=== PATIENT | female | born 1945 | race African-American/Black ===

== ENCOUNTER 2016-11-18 12:24 | Emergency (ER) | payer BC ==
[2016-11-18 12:04] LABS: BASOPHILS 0.6 %; BASOPHILS ABSOLUTE 0.04 10/3/uL (0.0-0.16); EOSINOPHILS 0.7 %; EOSINOPHILS ABSOLUTE 0.05 10/3/uL (0.0-0.53); ER CBC TAT 0 Hrs 04 MinsNP; HEMATOCRIT 37.9 % (36.0-48.0); HEMOGLOBIN 12.9 g/dL (12.0-16.0); IMMATURE GRANULOCYTES 0.1 %; IMMATURE GRANULOCYTES ABSOLUTE 0.01 10/3/uL (0.0-0.11); LYMPHOCYTES 33.6 %; LYMPHOCYTES ABSOLUTE 2.42 10/3/uL (0.67-4.30); MANUAL DIFF NO %; MEAN CORPUSCULAR VOLUME 85.2 fL (80-100); MEAN PLATELET VOLUME 9.7 fL (9.2-13.0); MONOCYTES 6.2 %; MONOCYTES ABSOLUTE 0.45 10/3/uL (0.21-1.20); NEUTROPHILS 58.8 %; NEUTROPHILS ABSOLUTE 4.24 10/3/uL (2.02-8.40); PLATELET COUNT 258 10/3/uL (150-400); RBC DISTRIBUTION WIDTH 16.2 % (12.0-16.0); RED CELL COUNT 4.45 10/6/uL (4.0-5.6); WHITE BLOOD CELLS 7.2 10/3/uL (4.5-10.5)
[2016-11-18 12:13] LABS: INTERNATIONAL NORMAL RATI 1.1 UNITS (-); PARTIAL THROMBO TIME 30.7 SEC (22.5-37.2); PROTIME (NOT ORD) 14.2 SEC (12.0-14.5)
[2016-11-18 12:19] LABS: CHEST PAIN PROFILE TAT 0 Hrs 19 Mins; CHLORIDE, SERUM 103 MMOL/L (96-112); CO2 (CARBON DIOXIDE) 30 MMOL/L (24-34); CREATININE 0.79 MG/DL (0.55-1.02); GFR AFRICAN AMERICAN 87 ML/MIN (>=60); GFR NON AFRICAN AMERICAN 75 ML/MIN (>=60); GLUCOSE, SERUM 80 MG/DL (60-99); SODIUM, SERUM 139 MMOL/L (135-148); TROPONIN I <0.02 NG/ML (<0.05)
[2016-11-18 12:20] LABS: BUN (BLOOD UREA NITROGEN) 12 MG/DL (6-23)
[~2016-11-18 12:24] MED LIST: ADVIL PO; ALLEGRA 180 MG180 MG PO; ALLEGRA180 PO; AMOXIL500 MG PO; ASA5GR PO; ASABAYER PO; BENICAR HCT1 TAB PO; BENICAR20 PO; BENICAR40 PO; BIOTIN5 MG PO; BONIVA; BONIVA150 MG PO; BYSTOLIC10 MG PO; BYSTOLIC5 MG PO; CALTRA600D PO; CARTIA XT180 MG/24 PO; CAT1 PO; CEFT5 PO; CENTRUM PO; CENTRUM TAB1 TAB PO; CO Q-10100 MG PO; CO Q-10200 MG PO; CRESTOR10 PO; CRESTOR5 MG PO; EDARBI40 MG PO; FLONASE NAS; HALF81 PO; HARD NAILS PO; MULTIVITAMI1 PO; MULTIVITAMIN PO; NASONEX NAS; NORV25 PO; PREV30 PO; REFRES1 OPH; SINGULAIR1 PO; SPIRO25 PO; TAMBO50 PO; TAMBOCOR PO; TEKTUR150 PO; TOPXL50 PO; ULTRAM50 PO; VITAMIN B-2100 MG PO; VITAMIN D1000 UNI1 PO; VITAMIN D2000 UNIT PO; VITAMIN D31000 UNIT PO; VITC500 PO; VOLTAREN1 % TOP; XYZAL5 MG PO; ZYRTEC ALLGY10 MG PO; [UNRECOGNIZED DRUG - OTHER] OR
[2017-04-14] MEDS ORDERED: PROAIR HFA INH (17:11)
== END 2016-11-18 13:30 | disposition home or self-care (01) ==
LOC: ER 12:24
PROVIDERS: Emergency Medicine
DX: R07.89 Other chest pain (principal); J45.909 Unspecified asthma, uncomplicated; I10 Essential (primary) hypertension; Z87.891 Personal history of nicotine dependence; Z95.0 Presence of cardiac pacemaker; Z86.73 Personal history of transient ischemic attack (TIA), and cerebral infarction without residual deficits; Z88.1 Allergy status to other antibiotic agents; Z91.09 Other allergy status, other than to drugs and biological substances; Z88.8 Allergy status to other drugs, medicaments and biological substances; Z79.82 Long term (current) use of aspirin; Z79.899 Other long term (current) drug therapy
CPT/HCPCS: 71010; 80048; 83735; 84484; 85025; 85610; 85730; 93005; 99285; A9270-GY